=== PATIENT | female | born 1980 | race Caucasian/White ===

== ENCOUNTER → 2020-03-21 | Outpatient (CLI) | payer OTHER ==
[2020-03-17 15:30] VITALS: BP 115/75
[~2020-03-21] MED LIST: CLARITIN 1010 MG/TAB PO; FLONASE ALLERG9.9 ML NS; ZYRTEC10 M3 PO
== END ==
LOC: LAB 11:49
DX: Z20.828 Contact with and (suspected) exposure to other viral communicable diseases (principal)

== ENCOUNTER 2020-06-07 15:25 | Outpatient (RCR) | payer OTHER ==
[2020-03-17 15:30] VITALS: BP 115/75
[2020-03-24 14:30] VITALS: BP 108/68
[2020-04-01 12:08] VITALS: BP 117/76
[2020-04-13 14:41] VITALS: BP 116/64
[2020-04-20 20:08] VITALS: BP 113/81
[2020-04-27 18:17] VITALS: BP 138/86
[2020-05-05 14:36] VITALS: BP 123/74
[2020-05-11 14:21] VITALS: BP 117/79
[2020-05-19 18:06] VITALS: BP 115/77
[2020-05-26 16:30] VITALS: BP 144/81
[~2020-06-07] VITALS: Ht 160 cm; Wt 63.6 kg
[2020-06-07 15:20] VITALS: BP 115/87
== END 2020-06-15 | disposition still patient (30) ==
LOC: AMSURD
DX: J30.1 Allergic rhinitis due to pollen (principal); J30.2 Other seasonal allergic rhinitis; J30.81 Allergic rhinitis due to animal (cat) (dog) hair and dander

== ENCOUNTER 2020-07-04 15:21 | Outpatient (RCR) | payer OTHER ==
[2020-06-16 16:18] VITALS: BP 117/78
[2020-06-23 19:15] VITALS: BP 118/87
[~2020-07-04] VITALS: Ht 160 cm; Wt 63.6 kg
[2020-07-04 16:33] VITALS: BP 117/75
== END 2020-07-04 15:30 | disposition still patient (30) ==
LOC: AMSURD 15:21
DX: J30.1 Allergic rhinitis due to pollen (principal); J30.2 Other seasonal allergic rhinitis; J30.81 Allergic rhinitis due to animal (cat) (dog) hair and dander; J30.89 Other allergic rhinitis

== ENCOUNTER → 2020-08-29 | Outpatient (CLI) | payer OTHER ==
[2020-08-26 15:30] VITALS: BP 123/96
== END ==
LOC: LAB 15:33
DX: R19.7 Diarrhea, unspecified (principal); R53.83 Other fatigue; Z20.828 Contact with and (suspected) exposure to other viral communicable diseases

== ENCOUNTER 2020-09-26 14:22 | Outpatient (RCR) | payer OTHER ==
[2020-07-12 15:26] VITALS: BP 103/74
[2020-07-26 14:45] VITALS: BP 114/81
[2020-08-04 14:15] VITALS: BP 120/78
[2020-08-11 17:30] VITALS: BP 122/88
[2020-08-18 14:28] VITALS: BP 129/81
[2020-08-26 15:30] VITALS: BP 123/96
[2020-09-09 15:30] VITALS: BP 113/76
[2020-09-16 16:16] VITALS: BP 125/78
[~2020-09-26] VITALS: Ht 160 cm; Wt 63.6 kg
[2020-09-26 14:50] VITALS: BP 125/85
== END 2020-10-10 | disposition home or self-care (01) ==
LOC: AMSURD
DX: J30.1 Allergic rhinitis due to pollen (principal); J30.2 Other seasonal allergic rhinitis; J30.81 Allergic rhinitis due to animal (cat) (dog) hair and dander; J30.89 Other allergic rhinitis

== ENCOUNTER 2021-01-06 13:34 | Outpatient (RCR) | payer OTHER ==
[2020-10-12 15:30] VITALS: BP 122/83
[2020-10-27 13:20] VITALS: BP 117/90
[2020-11-03 14:30] VITALS: BP 109/71
[2020-11-10 13:55] VITALS: BP 114/81
--- NOTE | 2020-11-10 13:55 | NUR ---
Pt tolerated injection well with no S/S of allergic reaction.
[2020-11-17 13:02] VITALS: BP 109/76
[2020-11-24 15:00] VITALS: BP 108/76
[2020-12-13 15:19] VITALS: BP 112/76
[2020-12-30 16:35] VITALS: BP 126/82
[2021-01-06 14:25] VITALS: BP 118/73
== END 2021-01-10 | disposition home or self-care (01) ==
LOC: AMSURD
DX: J30.2 Other seasonal allergic rhinitis (principal); J30.1 Allergic rhinitis due to pollen; J30.81 Allergic rhinitis due to animal (cat) (dog) hair and dander

== ENCOUNTER → 2021-02-28 | Outpatient (CLI) | payer OTHER ==
[2021-02-24 13:37] VITALS: BP 113/70
[2021-02-28 12:01] LABS: MEAN CELL VOLUME 84 fl (78-100); MEAN CORPUSCULAR HEMOGLOBIN 26 pg (27-31); MEAN CORPUSCULAR HGB CONC 31 g/dL (33-37); MEAN PLATELET VOLUME 10.3 fl (7.4-10.4); PLATELET COUNT 262 K/mm3 (130-400); RED BLOOD COUNT 5.36 M/mm3 (4.10-5.30); RED CELL DISTRIBUTION WIDTH 13.9 % (11.5-14.5)
[2021-02-28 12:11] LABS: ALBUMIN 4.1 g/dL (3.5-5.0); POTASSIUM 3.5 mmol/L (3.5-5.1)
[2021-02-28 12:13] LABS: CALCIUM 8.9 mg/dL (8.3-10.5)
[2021-02-28 12:14] LABS: TOTAL PROTEIN 6.8 g/dL (6.4-8.3)
[2021-02-28 12:46] LABS: EOS % 2.3 % (1.0-5.0); LYMPH# 1.98 (1.50-4.00); NEU # 4.89 (1.40-6.50)
[2021-02-28 12:47] LABS: BASO # 0.02 (0.02-0.10); EOS # 0.17 (0.04-0.40); MONO # 0.44 (0.20-0.80)
== END ==
LOC: LAB 11:49
PROVIDERS: Nurse Practitioner Family
DX: R10.13 Epigastric pain (principal)

== ENCOUNTER → 2021-03-14 | Outpatient (CLI) | payer OTHER ==
[2021-02-24 13:37] VITALS: BP 113/70
== END ==
LOC: RAD 07:16
DX: R10.13 Epigastric pain (principal)

== ENCOUNTER 2021-04-06 10:00 | Outpatient (RCR) | payer OTHER ==
[2021-01-13 13:34] VITALS: BP 106/77
[2021-02-24 13:37] VITALS: BP 113/70
[2021-04-06 11:39] VITALS: BP 119/83
== END 2021-04-13 | disposition home or self-care (01) ==
LOC: AMSURD
DX: J30.2 Other seasonal allergic rhinitis (principal); J30.1 Allergic rhinitis due to pollen; J30.81 Allergic rhinitis due to animal (cat) (dog) hair and dander; J30.89 Other allergic rhinitis

== ENCOUNTER 2021-04-20 11:21 | Outpatient (RCR) | payer OTHER ==
[~2021-04-20] VITALS: Ht 160 cm; Wt 63.6 kg
[2021-04-20 11:42] VITALS: BP 127/85
== END 2021-07-19 | disposition home or self-care (01) ==
LOC: AMSURD
DX: J30.1 Allergic rhinitis due to pollen (principal); J30.89 Other allergic rhinitis; J30.81 Allergic rhinitis due to animal (cat) (dog) hair and dander; J30.2 Other seasonal allergic rhinitis

== ENCOUNTER → 2021-06-21 | Outpatient (CLI) | payer OTHER | LOC: LAB 11:16 | DX: R19.7 Diarrhea, unspecified (principal) ==

== ENCOUNTER → 2021-09-12 | Outpatient (CLI) | payer OTHER | LOC: LAB 10:08 | DX: R19.7 Diarrhea, unspecified (principal); R11.0 Nausea; R10.9 Unspecified abdominal pain; R23.2 Flushing ==

== ENCOUNTER → 2021-09-20 | Outpatient (CLI) | payer OTHER | LOC: LAB 10:36 | DX: R19.7 Diarrhea, unspecified (principal); R11.0 Nausea; R10.9 Unspecified abdominal pain; R23.2 Flushing ==

== ENCOUNTER → 2022-06-07 | Outpatient (CLI) | payer OTHER | LOC: MAMMO 09:43 | DX: Z12.31 Encounter for screening mammogram for malignant neoplasm of breast (principal) ==